=== PATIENT | male | born 1955 | race African-American/Black ===

== ENCOUNTER 2018-11-18 15:58 | Inpatient (IN) ==
[2018-11-18 16:56] LABS: BASO# 0.02 X1000 (0.0-0.2); BASO% 0.1 % (0.0-0.8); HEMATOCRIT 35.6 % (42.0-52.0); HEMOGLOBIN 12.9 g/dL (14.0-18.0); IMM GRAN% 0.5 % (0.0-0.5); INR 1.32; LYMPH# 0.93 X1000 (1.2-3.4); LYMPH% 4.5 % (20.5-51.1); MCH 27.9 PG (27-31); MCHC 36.2 g/dL (33-37); MCV 76.9 FL (81-99); MONO# 1.48 X1000 (0.11-0.59); MONO% 7.1 % (1.7-9.3); MPV 9.4 FL (7.4-10.4); NEUT# 18.21 X1000 (1.4-6.5); NEUT% 87.8 % (42.2-75.2); PLT 308 X1000 (130-400); PTT 33.3 Seconds (22.3-41.8); RBC 4.63 XMIL (4.7-6.1); RDW 15.3 % (11.5-14.5); WBC 20.74 X1000 (4.8-10.8)
[2018-11-18 17:02] LABS: ALBUMIN 2.8 g/dL (3.5-5.0); CALCIUM 8.3 mg/dL (8.8-10.2); CREATININE 2.1 mg/dL (0.7-1.2); MAGNESIUM 1.8 mg/dL (1.5-2.7); POTASSIUM 3.6 mmol/L (3.5-5.1); TOTAL BILIRUBIN 2.6 mg/dL (0.20-1.00)
[2018-11-18 17:04] LABS: BE 3.1 mmoll (-3.0-3.0); BLOOD TYPE ARTERIAL; HCO3-(ACT) 27.2 mmoll (20.0-26.0); O2(CT) 17.6 mL/dL (15.0-23.0); O2HB 90.7 % (95.0-99.0); PCO2(98.6) 29 mmHg (35-45); PO2(98.6) 59 mmHg (60-100); SAMPLE BLOOD; SAO2 94.5 % (95.0-100.0); THB 13.8 g/dL (11.5-17.4); pH(98.6) 7.54 (7.35-7.45)
[2018-11-18 17:06] LABS: ALLEN TEST YES; MODALITY ROOM AIR
[2018-11-18] MEDS ORDERED: NS 1,000 ML IV ONE ×2 (17:12)
[2018-11-18 17:18] LABS: BANDS 1 % (0-1); LYMPHS 3 % (21-51); MONO 5 % (1-9); SEGS 91 % (42-75)
[2018-11-18 17:20] LABS: LARGE PLATELETS OCCASIONAL; TARGET CELLS OCCASIONAL
--- NOTE | 2018-11-18 17:23 | PROVIDER DOCUMENTATION ---
HPI-Fever - General Chief Complaint: SEPSIS ALERT - P Stated Complaint: SEIZURE / COLD SX Time Seen by Provider: 11/18/18 17:15 Source: patient Allergies/Adverse Reactions: Patient Allergies Allergy/AdvReac Type Severity Reaction Status Date / Time No Known Allergies Allergy Verified 10/04/18 14:27 Home Medications: Home Medication List Medication Instructions Recorded Confirmed Last Taken Type Trazodone [Desyrel] 50 mg PO QHS #30 tablet 06/26/15 04/28/18 Unknown Rx LISINOpril [Prinivil] 20 mg PO DAILY #30 tab 07/27/17 01/01/18 Unknown Rx Lisinopril 20 mg PO DAILY #30 tab 01/01/18 Unknown Rx Emtricitabine/Tenofovir [Truvada 1 ea PO DAILY #14 tab 05/06/18 10/04/18 Unknown Rx 200 mg/300 mg Tablet] Iron Carbonyl/Ascorbic Acid 1 ea PO DAILY #30 tab 05/06/18 Unknown Rx [Icar-C] Levofloxacin [Levaquin] 750 mg PO DAILY #5 tab 05/06/18 Unknown Rx Megestrol Acetate [Megace Liquid] 400 mg PO BID #60 udc 05/06/18 Unknown Rx Metoprolol [Lopressor] 25 mg PO BID #60 tab 05/06/18 Unknown Rx Metoprolol [Lopressor] 25 mg PO BID #60 tab 07/29/18 10/04/18 Unknown Rx Metoprolol [Lopressor] 25 mg PO BID #60 tab 10/04/18 Unknown Rx - History of Present Illness-Fever Nature of Presenting Problem: 63 YOM WHO IS HIV + PRESENTS WITH C/O FEVER, CHILLS, WEAKNESS, COUGH X 2 WEEKS. PT IS HIV +. HE C/O CP WHEN COUGHING. GENERALIZED NONFOCAL WEAKNESS AND INABILITY TO WALK. Fever Severity/Quality: reports: subjective Onset/Duration: reports: other (2 WKS) Timing: reports: still present Severity: reports: severe Context: reports: HIV/AIDS Recent Illness?: reports: none Fever Therapy COPY PREPARER: Initiated none Cognitive Baseline: alert, oriented x3 Modifying Factors: improves with: nothing Associated Symptoms: reports: chest pain (WITH COUGHING), cough, fever/chills, weakness Similar Symptoms Previously?: No Recently seen or treated by another doctor?: No - Glascow Coma Score Best Eye Response (Lindsay): (4) open spontaneously Best Verbal Response (Lindsay): (5) oriented Best Motor Response (Lindsay): (6) obeys commands Review of Systems - Adult - REVIEW OF SYSTEMS - ADULT Constitutional: reports: chills, fever, fatique Eyes: reports: no symptoms reported. denies: see HPI, discharge, dry eyes, decreased vision, blurred vision, double vision, eye pain, redness, other Ears, Nose, Mouth & Throat: reports: no symptoms reported. denies: see HPI, ear discharge, ear pain, hearing loss, tinnitus, epistaxis, sinus problem, nose pain, loose teeth, mouth/dental pain, mouth swelling, hoarseness, throat pain, throat swelling, other Cardiovascular: reports: chest pain (WITH COUGHING). denies: no symptoms reported, see HPI, edema, heart murmur, irregular heart rate, orthopnea, palpitations, poor circulation, PND, syncope, other Respiratory: reports: cough Gastrointestinal: reports: no symptoms reported. denies: see HPI, abdominal pain, hematemesis, constipation, diarrhea, difficulty swallowing, frequent heartburn, nausea, poor appetite, rectal bleeding, vomiting, other Genitourinary: reports: no symptoms reported. denies: see HPI, dysuria, discharge, frequency, flank pain, frequent UTI's, hematuria, hesitency, incont inence, urinary retention, urgency, other Musculoskeletal: reports: muscle weakness (GENERALIZED). denies: no symptoms reported, see HPI, bone pain, back pain, frequent leg cramps, joint pain, joint swelling, muscle aches, neck pain, other Integumentary: reports: no symptoms reported. denies: see HPI, hives, hair loss, itching, mole changes, nail changes, rash, skin sores/ulcer, skin thickening, other Neurological: reports: loss of balance (2/2 WEAKNESS PER PATIENT). denies: no symptoms reported, see HPI, ataxia, dizziness/vertigo, headache/migraines, numbness, paresthesia, seizure, slurred speech, syncope, tremors, other Psychiatric: reports: no symptoms reported. denies: see HPI, anxiety, anti- depressant use, alcohol/drug dependence, depression, emotional problems, insomnia, panic attacks, suicidal thoughts, other Endocrine: reports: no symptoms reported. denies: see HPI, change in skin pigment, excessive sweating, goiter, cold intolerance, heat intolerance, increased hunger, increased thirst, polyuria, other Hematologic/Lymphatic: reports: no symptoms reported. denies: see HPI, blood clots, easy bruising, low blood count, lymphedema, prolonged bleeding, swollen lymph nodes, transfusions, other Allergic/Immunologic: reports: no symptoms reported. denies: see HPI, allergic reactions, allergic rhinitis, asthma, eczema, food allergy, frequent infections, hay fever, hives, positive PPD, urticaria, other Past History - Adult - PAST MEDICAL HISTORY-ADULT Review of Records: reports: Nursing Assessment Review, Social history reviewed & non-contributory. Major Childhood Illnesses: reports: denies history, history unknown Cardiovascular: reports: HTN Respiratory: reports: denies history Gastrointestinal: reports: denies history Obstetrical/Gynecological: reports: denies history Genitourinary: reports: denies history Musculoskeletal: reports: denies history Neurological: reports: denies history Endocrine/Immune: reports: HIV/AIDS Other Conditions: reports: denies history - PRIOR SURGERIES/PROCEDURES Surgical/Procedure History: reports: none, reviewed, not pertinent - IMMUNIZATION STATUS Childhood Immunizations: See Nurse Assessment Flu Vaccine: See Nurse Assessment - FAMILY HISTORY Family History: reviewed, not pertinent Physical Exam-General - PHYSICAL EXAM-ADULT Initial Vital Signs Reviewed: Yes - CONSTITUTIONAL General Appearance: alert, no apparent distress - EYES Eyes: PERRL/EOMI - HEAD, EARS, NOSE, MOUTH & THROAT HENMT: normocephalic/atraumatic, moist mucous membranes, normal ENT inspection - NECK Neck: non-tender, full range of motion - RESPIRATORY Respiratory: chest non-tender, no respiratory distress, no accessory muscle use, rhonchi - CARDIOVASCULAR Cardiovascular: no edema, no gallop, no JVD, no murmur, tachycardia - GASTROINTESTINAL (ABDOMEN) Abdominal Exam: normal bowel sounds, non tender, soft - LYMPHATIC Lymphatic: no adenopathy - MUSCULOSKELETAL Back Exam: normal inspection, no CVA tenderness, no vertebral tenderness Extremity: normal range of motion, non-tender. negative: normal gait - SKIN Integumentary: normal color, normal turgor, warm/dry - NEUROLOGIC Neurologic: grossly normal - PSYCHIATRIC Psych/Mental Status: normal mood/affect, oriented x 3 Progress - PLAN OF CARE/RESULTS Progress/Plan/Lab Results: Vital Signs - 8 hr 06/10/19 16:06 Temperature 99.5 F Pulse Rate 142 H Respiratory Rate 22 Blood Pressure 106/73 O2 Sat by Pulse Oximetry 94 L Laboratory Results - last 24 hr 11/18/18 11/18/18 11/18/18 16:29 16:29 16:29 WBC 20.74 H RBC 4.63 L Hgb 12.9 L Hct 35.6 L MCV 76.9 L MCH 27.9 MCHC 36.2 RDW Std Deviation 15.3 H Plt Count 308 MPV 9.4 Immature Gran % (Auto) 0.5 Neut % (Auto) 87.8 H Lymph % (Auto) 4.5 L Island % (Auto) 7.1 Eos % (Auto) 0.0 Baso % (Auto) 0.1 Immature Gran # (Auto) 0.10 H Neut # (Auto) 18.21 H Lymph # (Auto) 0.93 L Island # (Auto) 1.48 H Eos # (Auto) 0.00 Baso # (Auto) 0.02 Segmented Neutrophils 91 H Band Neutrophils 1 Lymphocytes 3 L Monocytes 5 Large Platelets OCCASIONAL Target Cells OCCASIONAL PT INR PTT (Actin FS) Specimen Type Sample Site pH pCO2 pO2 HCO3 Base Excess Oxyhemoglobin ABG O2 Sat (Calculated) ABG O2 Saturation ABG Carboxyhemoglobin ABG Methemoglobin Dez Test A-a O2 Difference Total Hemoglobin Lactate Blood Gas Modality FiO2 % Sodium 130 L Potassium 3.6 Chloride 92 L Carbon Dioxide 21 L Anion Gap 17 BUN 50 H Creatinine 2.1 H Estimated GFR/1.73 m2 32 BUN/Creatinine Ratio 24 Glucose 125 H Calculated Osmolality 276 Calcium 8.3 L Magnesium 1.8 Total Bilirubin 2.60 H AST 51 H ALT 18 Alkaline Phosphatase 97 Creatine Kinase 101 Troponin T 0.022 Total Protein 8.0 Albumin 2.8 L Globulin 5.0 Albumin/Globulin Ratio 1.0 Plasma Lactate 11/18/18 11/18/18 11/18/18 16:29 16:29 16:45 WBC RBC Hgb Hct MCV MCH MCHC RDW Std Deviation Plt Count MPV Immature Gran % (Auto) Neut % (Auto) Lymph % (Auto) Island % (Auto) Eos % (Auto) Baso % (Auto) Immature Gran # (Auto) Neut # (Auto) Lymph # (Auto) Island # (Auto) Eos # (Auto) Baso # (Auto) Segmented Neutrophils Band Neutrophils Lymphocytes Monocytes Large Platelets Target Cells PT 17.0 H INR 1.32 PTT (Actin FS) 33.3 Specimen Type ARTERIAL Sample Site R BRACHIAL pH 7.54 H pCO2 29 L pO2 59 L HCO3 27.2 H Base Excess 3.1 H Oxyhemoglobin 90.7 L ABG O2 Sat (Calculated) 17.6 ABG O2 Saturation 94.5 L ABG Carboxyhemoglobin 3.00 H ABG Methemoglobin 1.0 Dez Test YES A-a O2 Difference 54.0 Total Hemoglobin 13.8 Lactate 1.10 Blood Gas Modality ROOM AIR FiO2 % 21.0 Sodium Potassium Chloride Carbon Dioxide Anion Gap BUN Creatinine Estimated GFR/1.73 m2 BUN/Creatinine Ratio Glucose Calculated Osmolality Calcium Magnesium Total Bilirubin AST ALT Alkaline Phosphatase Creatine Kinase Troponin T Total Protein Albumin Globulin Albumin/Globulin Ratio Plasma Lactate 1.8 Orders Category Date Time Status Cardiac Monitoring DIRECTED Care 11/18/18 16:11 Active IV Insertion ORDERED Care 11/18/18 16:11 Active Notify MD of + Sepsis Screen NOW Care 11/18/18 16:11 Active Notify Physician As Ordered Care 11/18/18 16:11 Active CHEST-1 VIEW [RAD] Stat Exams 11/18/18 16:11 Taken ABG [RESP] Routine Lab 11/18/18 16:45 Completed BLOOD CULTURE [BLDCUL] Stat Lab 11/18/18 16:11 Ordered CBC WITH DIFF [HEME] Stat Lab 11/18/18 16:29 Completed CK PROFILE [SP CHEM] Stat Lab 11/18/18 16:29 Completed COMPREHENSIVE METABOLIC PANEL [CHEM] Stat Lab 11/18/18 16:29 Completed LACTATE, PLASMA [CHEM] Q3H Lab 11/18/18 16:29 Completed LACTATE, PLASMA [CHEM] Q3H Lab 11/18/18 19:15 Uncollected LACTATE, PLASMA [CHEM] Q3H Lab 11/18/18 22:15 Uncollected MAGNESIUM [CHEM] Stat Lab 11/18/18 16:29 Completed PROTIME WITH INR [COAG] Stat Lab 11/18/18 16:29 Completed PTT [COAG] Stat Lab 11/18/18 16:29 Completed TROPONIN T Stat Lab 11/18/18 16:29 Completed URINALYSIS W/POSS RFLX CULT [URINALYSIS] Stat Lab 11/18/18 16:11 Uncollected URINE DRUG SCREEN PL Stat Lab 11/18/18 17:22 Uncollected 0.9% Sodium Chloride Inj [Ns] 1,000 ml Med 11/18/18 17:12 Active IV 999 mls/hr 0.9% Sodium Chloride Inj [Ns] 1,000 ml Med 11/18/18 17:12 Active IV 999 mls/hr Piperacillin/Tazobactam [Zosyn] 4.5 gm Med 11/18/18 17:25 Active 0.9% Sodium Chloride Inj [Ns] 100 ml IV NOW Vancomycin 1 gm/Ns Med 11/18/18 17:25 Active 1 gm in 250 ml IV NOW Oxygen Device Stat Oth 11/18/18 16:11 Active Result Diagrams: 11/18/18 16:29 11/18/18 16:29 - XRAY 1 XRAY Study: Chest Impression: Abnormal (PNA) - CONSULTS/PCP/HOSPITALIST Notification #1 *Consult/PCP/Hospitalist*: DR PEDRAZA Time Discussed: 17:55 Consult Disposition: Admit Departure - Departure Date of Disposition Decision: 11/18/18 Time of Disposition Decision: 17:54 DIAGNOSIS: Acute kidney injury, Pneumonia DIAGNOSIS: (Ruled Out): Sepsis Disposition: HOME 01 Certified Medical Emergency: Emergent Condition: Fair Referrals and Follow-Ups: Selam Hernandez MD [Primary Care Provider] - - Critical Care Note This patient required my direct & personal management of CC.: No Attestation - Physician/ MIGNON Attestation Patient care was provided by Advanced Practice Provider:: Yes Advanced Practice Provider:: Cheyanne Logan Advanced Practice Provider documentation review:: The Mid-level provider documentation, treatment plan and medical decision making was reviewed by the physician who agrees with all treatment and medical decision making by the MLP. The physician spent face to face time with patient:: No Advanced Practice Provider documentation review:: Supervising physician onsite and consulted in the evaluation and care of this patient. The physician did not have a face to face encounter with the patient.
[2018-11-18] MEDS ORDERED: ZOSYN 4.5 GM in NS 100 ML IV ONE (17:25)
[2018-11-18] MEDS ORDERED: VANCOMYCIN 1 GM/NS 1 GM/250 ML IVPB IV ONE (17:25)
--- NOTE | 2018-11-18 17:55 | ED EKG INTERP ---
This chart was entered by Erin Shearer Scribe, acting as scribe for Freddy Mcclendon MD. EKG Interpretation - EKG Time of EKG reading by physician:: 16:15 EKG Read and Signed by:: Freddy Mcclendon EKG Interpretation (*Must complete 3 of following elements*): Abnormal Rate: 127 Rhythm: sinus tachy QRS: LVH ST Wave: non-specific ST changes Attestation - Physician/ MIGNON Attestation Patient care was provided by Advanced Practice Provider:: No The physician spent face to face time with patient:: Yes Advanced Practice Provider documentation review:: Supervising physician onsite and consulted in the evaluation and care of this patient. The physician did have a face to face encounter with the patient. This chart was documented by the indicated scribe, (Erin Shearer Scribe) and accurately reflects the services I performed and decisions made by me, Freddy Mcclendon MD, as attested by the provider's signature.
--- NOTE | 2018-11-18 18:01 | Diag Imaging Result Doc PS360 ---
CHEST-1 VIEW - 11/18/2018 INDICATION: Weakness COMPARISON: 05/15/2018 FINDINGS: There is a new dense infiltrate in the right upper lobe. No pneumothorax or significant pleural effusion. Heart size remains stable. IMPRESSION: Dense right upper lobe infiltrate/pneumonia. Electronically signed by Darnell Bauer 11/18/2018 5:59 PM
--- NOTE | 2018-11-18 19:27 | HISTORY AND PHYSICAL ---
HISTORY AND PHYSICAL ADDENDUM: CHIEF COMPLAINT: Cough, fever. HISTORY OF PRESENT ILLNESS: Patient is a 63-year-old male who has a known history of HIV. He presents to the ER with fevers, chills, generalized weakness. He has had a cough for the past 2 weeks. The daughter notes, however, that his weakness started yesterday. His fevers started 2 days ago. States it has continued to worsen and therefore she rushed him to the ER today. PHYSICAL EXAMINATION: On exam, patient is awake, alert. He is in no distress. He is pleasant. His heart rate is actually improved after getting IV fluids. He is down to 110 from 145 earlier. Given that he has HIV, his heart rate is up, elevated white count, fever and pneumonia, he has sepsis, I am going to place him in the ICU and follow. Place him on antibiotics. Please see full note. cc: Yehuda Calderon MD
--- NOTE | 2018-11-18 20:14 | HISTORY AND PHYSICAL ---
PRIMARY CARE PROVIDER: None. CHIEF COMPLAINT: Cough, dizziness. HISTORY OF PRESENT ILLNESS: Mr. Pierre is a 63-year-old male who carries a past medical history of HIV, on Truvada. Per daughter report at the bedside she is unsure if he has actually been taking his HIV medicines. Iron deficiency anemia, LVH. The patient reports he has been feeling sick x 1 week. Febrile at home. They reported his last temp was 98. He has also complained of some dizziness, productive cough, weakness. In the ED he was found to have an elevated white count of 20, as well as acute kidney injury and hyponatremia, elevated AST and T bilirubin. He does appear to be dehydrated. When he came in his temperature was 99. His heart rate was 140s to 150s. His chest x-ray does show a dense right upper lobe pneumonia. Given his HIV status he was initiated on broad-spectrum antibiotics with vancomycin and Zosyn. We will continue those for now. He was given 2 L of IV normal saline. We will continue to hydrate him with IV antibiotics and watch him overnight in the ICU. PAST MEDICAL HISTORY: 1. HIV. 2. Anemia. FAMILY HISTORY: No cancer. No heart disease. SOCIAL HISTORY: He was a pack per day smoker for 25 years. Denies alcohol and illicit drug use. ALLERGIES: No known drug allergies. HOME MEDICATIONS: Have not been reconciled. REVIEW OF SYSTEMS: A twelve-point review of systems completely negative except for those mentioned in HPI. PHYSICAL EXAMINATION: VITAL SIGNS: Temperature is 99.5, heart rate 142, now down to 105, respiratory rate 22, blood pressure 106/73, O2 is 94% on room air. GENERAL: Mr. Pierre is a pleasant 63-year-old male who is sitting up in the bed in no acute distress. HEENT: Atraumatic, normocephalic. PERRL. NECK: Supple. Trachea midline. CARDIOVASCULAR: S1, S2 appreciated. No murmurs, gallops, rubs noted. RESPIRATORY: Lung sounds scattered rhonchi bilaterally. GASTROINTESTINAL: Soft, nontender, nondistended. Positive bowel sounds 4 quads. LOWER EXTREMITIES: Negative for edema. No clubbing, no cyanosis. NEUROLOGIC: No focal deficits noted. DIAGNOSTIC DATA: Chest x-ray: Dense right upper lobe infiltrate, pneumonia. LABORATORY DATA: White count 20, hemoglobin and hematocrit 12 and 35, platelet count is 308,000. Sodium 130, potassium 3.6, BUN 50, creatinine 2.1, blood glucose is 125, mag 1.8. T bilirubin 2.60, AST 51, albumin 2.8. ASSESSMENT AND PLAN: 1. Sepsis, rule out. Patient does have a low-grade fever, tachycardia, elevated white count. We will initiate him on broad-spectrum antibiotics. He does have a right upper lobe pneumonia. We will continue to trend his lactate. He did receive 2 fluid boluses in the ED. His heart rate did come down. He is not hypotensive. However, we will monitor him in the ICU overnight. 2. Right upper lobe pneumonia with known HIV. Will cover him with broad-spectrum antibiotics for now with vancomycin and Zosyn, with his elevated white count, he does not appear to be immunocompromised. We will continue to monitor him for HIV type pneumonia. We will consult Dr. London Newell if necessary via phone for any antibiotic changes. We will continue with supplemental O2, bronchodilators and aggressive pulmonary toilet. 3. Acute kidney injury. We will continue with aggressive IV hydration. 4. Clinical dehydration. We will continue with aggressive IV hydration. Recheck labs in the a.m. 5. Transaminitis. Again, we will recheck his labs in the a.m. 6. Hyponatremia. He has received a 2 L bolus of fluid and we will continue with IV hydration. The patient is not far off of his baseline. 7. HIV. Daughter pulled us aside outside the patient's room. She is unsure if he has been taking his HIV medication. She is worried about illicit drug use. We will go ahead and check a tox screen as well and consult Dr. Newell if needed. 8. Anemia, stable. 9. Hypertension. Will continue home medications when verified. 10. Further recommendation to follow physician evaluation, laboratory and diagnostic data. Dictated by SADE Cast for Yehuda Calderon MD cc: Yehuda Calderon MD
[2018-11-18 21:09] LABS: URINE SOURCE VOIDED
[2018-11-18 21:25] LABS: BILIRUBIN URINE NEGATIVE (NEGATIVE); BLOOD URINE 3+ (NEGATIVE); CLARITY VERY CLOUDY (CLEAR); COLOR YELLOW; GLUCOSE URINE NEGATIVE (NEGATIVE); KETONE URINE TRACE mg/dL (NEGATIVE); LEUKOCYTES URINE TRACE (NEGATIVE); NITRITE URINE NEGATIVE (NEGATIVE); PH URINE 6.5; PROTEIN URINE 1+(30 mg/dL) mg/dL (NEGATIVE); SP GRAVITY URINE 1.015; UR AMPHETAMINES QUAL NONE DETECTED (NONE DETECT); UR BARBITUATES QUAL NONE DETECTED (NONE DETECT); UR BENZODIAZEPIN QUAL NONE DETECTED (NONE DETECT); UR CANNABINOIDS QUAL NONE DETECTED (NONE DETECT); UR COCAINE QUAL NONE DETECTED (NONE DETECT); UR METHADONE QUAL NONE DETECTED (NONE DETECT); UR METHAMPHETAMINE QUAL NONE DETECTED (NONE DETECT); UR OPIATES QUAL NONE DETECTED (NONE DETECT); UR OXYCODONE QUAL NONE DETECTED (NONE DETECT); UR PCP QUAL NONE DETECTED (NONE DETECT); UR PROPOXYPHENE QUAL NONE DETECTED (NONE DETECT); UR TCA QUAL NONE DETECTED (NONE DETECT); UROBILINOGEN URINE 4 mg/dL
[2018-11-18 21:27] LABS: URINE BACTERIA 2+ /HFP; URINE CAST GRANULAR PRESENT /LPF; URINE CRYSTAL NONE SEEN /HPF; URINE EPITHELIAL CELLS <10 /HPF (<10); URINE YEAST NONE SEEN /HPF
[2018-11-18] MEDS ORDERED: VANCOMYCIN IV PER PHARMACY MISC SCH (22:11)
[2018-11-18] MEDS ORDERED: DUONEB (A & A) INH PRN (22:11)
[2018-11-18] MEDS: NS 1,000 ML IV SCH (22:48)
[2018-11-19] MEDS: DUONEB (A & A) INH SCH ×8 (00:05→23:24)
[2018-11-19] MEDS ORDERED: VANCOMYCIN 500 MG/NS 500 MG/100 ML IVPB IV ONE (01:00)
[2018-11-19] MEDS: ZOSYN 2.25 GM in NS 50 ML IV SCH ×5 (01:00→18:52)
[2018-11-19 05:14] LABS: BASO# 0.02 X1000 (0.0-0.2); BASO% 0.1 % (0.0-0.8); EOS# 0.02 X1000 (0.0-0.7); EOS% 0.1 % (0.0-10.0); HEMATOCRIT 31.4 % (42.0-52.0); HEMOGLOBIN 11.4 g/dL (14.0-18.0); IMM GRAN# 0.07 X1000 (0.0-0.04); IMM GRAN% 0.4 % (0.0-0.5); MCH 28.1 PG (27-31); MCHC 36.3 g/dL (33-37); MCV 77.3 FL (81-99); MONO% 7.5 % (1.7-9.3); MPV 9.2 FL (7.4-10.4); NEUT# 13.97 X1000 (1.4-6.5); NEUT% 86.9 % (42.2-75.2); PLT 270 X1000 (130-400); RBC 4.06 XMIL (4.7-6.1); RDW 15.1 % (11.5-14.5); WBC 16.08 X1000 (4.8-10.8)
[2018-11-19 05:30] LABS: BANDS 3 % (0-1); LYMPHS 7 % (21-51); MONO 4 % (1-9); SEGS 86 % (42-75)
[2018-11-19 05:31] LABS: ANISOCYTOSIS OCCASIONAL; MICROCYTOSIS OCCASIONAL; POIKILOCYTOSIS OCCASIONAL; TARGET CELLS OCCASIONAL
[2018-11-19 05:35] LABS: ALBUMIN 2.1 g/dL (3.5-5.0); CALCIUM 7.8 mg/dL (8.8-10.2); CREATININE 1.6 mg/dL (0.7-1.2); POTASSIUM 3.2 mmol/L (3.5-5.1); TOTAL BILIRUBIN 2.1 mg/dL (0.20-1.00); TOTAL PROTEIN 7.2 g/dL (6.3-8.3)
[2018-11-19] MEDS: NS 1,000 ML IV SCH ×3 (05:54→22:37)
--- NOTE | 2018-11-19 07:48 | Diag Imaging Result Doc PS360 ---
EXAM: CHEST-PORTABLE - 11/19/2018 HISTORY: PNA TECHNIQUE: Portable chest COMPARISON: 11/18/2018 FINDINGS: There is right upper lobe infiltrate compatible with pneumonia similar to prior. There has been interval mild volume loss at the right lobe. There is a small amount infiltrate or atelectasis at the medial left base similar prior. There is no pleural effusion or pneumothorax identified. Heart size appears within normal limits. IMPRESSION: Right lobe infiltrate with mild volume loss, compatible with pneumonia. Electronically signed by Chad Gonzalez 11/19/2018 7:46 AM
[2018-11-19] MEDS ORDERED: KLOR-CON PO ONE (16:55)
[2018-11-19] MEDS ORDERED: VANCOMYCIN 1,400 MG in NS 250 ML IV SCH (23:00)
--- NOTE | 2018-11-19 23:26 | PROGRESS NOTE ---
DATE: 11/19/2018 SUBJECTIVE: The patient notes that he feels much better. He has had no fever. His cough has improved. He denies any chest pain or palpitations. OBJECTIVE: Temperature 99 degrees, pulse 84, respiratory rate 18, BP 139/79.General: The patient is very pleasant. He is in no distress, sitting up on the bed and watching TV. HEENT: Normocephalic. Neck supple. Cardiovascular: Regular rate. Chest clear and nonlabored. No wheezing, no crackles. Abdomen is soft, nondistended. Extremities: Moves all extremities. ASSESSMENT: 1. Sepsis, appears resolved. 2. Leukocytosis, improved. 3. Hypokalemia. We will replace. 4. Acute kidney injury, improved. Creatinine is decreased to 1.6. 5. Hyponatremia, resolved. 6. Human immunodeficiency virus. 7. Right upper lobe pneumonia. Continue antibiotics. PLAN: We will move him to the floor and will follow. Hopefully home over the next 1 or 2 days. cc: Yehuda Calderon MD
[2018-11-19 23:28] VITALS: BP 156/89
[2018-11-19] MEDS ORDERED: HALDOL IM PRN (23:34)
[2018-11-19] MEDS ORDERED: BENADRYL IM PRN (23:35)
[2018-11-20] MEDS: DUONEB (A & A) INH SCH (03:12)
[2018-11-20] MEDS: ZOSYN 2.25 GM in NS 50 ML IV SCH (06:22)
[2018-11-20] MEDS ORDERED: OMNICEF PO SCH (09:00)
[2018-11-20] MEDS ORDERED: DOXYCYCLINE PO SCH (09:00)
--- NOTE | 2018-11-20 10:39 | EKG Report ---
Test Performed on : 11/18/2018 4:15:28 PM Test Reason : ER Blood Pressure : / mmHG Vent. Rate : 127 BPM Atrial Rate : 127 BPM P-R Int : 134 ms QRS Dur : 082 ms QT Int : 314 ms P-R-T Axes : 061 048 074 degrees QTc Int : 456 ms Sinus tachycardia. Voltage criteria for left ventricular hypertrophy Nonspecific T wave abnormality Abnormal ECG When compared with ECG of 10-DEC-2014 17:25, Nonspecific T wave abnormality no longer evident in Inferior leads Unconfirmed Result
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
[2018-11-20] MEDS ORDERED: VANCOMYCIN 1,400 MG in NS 250 ML IV SCH (18:00)
--- NOTE | 2018-11-21 18:05 | DISCHARGE SUMMARY ---
ADMISSION DATE: 11/18/2018 DISCHARGE DATE: 11/20/2018 ADDENDUM: The patient was seen and examined by myself. Full note dictated and discussed with nurse practitioner. The patient was admitted to the hospital, treated in the usual fashion, placed on antibiotics to treat sepsis. Thankfully continued to improve. On discharge, he is awake, alert, and is eating and drinking well. cc: Yehuda Calderon MD
--- NOTE | 2018-11-22 03:54 | DISCHARGE SUMMARY ---
ADMISSION DATE: 11/18/2018 DISCHARGE DATE: 11/20/2018 ADDENDUM: Patient seen and examined by myself. Full note dictated and discussed with nurse practitioner. Patient presented to the hospital with leukocytosis, diagnosed with pneumonia and sepsis. He was placed in ICU overnight. Thankfully continued to improve, was moved to the floor. On discharge, patient was much improved. We certainly would have preferred him to stay in the hospital another day or 2 to ensure that he was going to continue to improve. However, patient was adamant that he was going home. Therefore, to prevent him from leaving AMA we discharged him to make sure that he went home with medications. cc: Yehuda Calderon MD
== END 2018-11-20 08:50 | disposition home or self-care (01) | DRG 871 ==
LOC: P.ED 15:58 → P.EDIPHOLD 20:26 → P.ICU 21:44 → P.MEDSURG 11-19 16:41
PROVIDERS: ATTEND Family Medicine
CPT/HCPCS: 51702; 71010; 71045; 80053; 80104; 80301; 80305; 81001; 82550; 82805; 83605; 83735; 84484; 85025; 85610; 85730; 87040; 87088; 93005; 94640; 94799; 96365; 96367; 99285; A9270; G0431; G0434; G0477; J2543; J3370; J7030